=== PATIENT | female | born 1980 | race Caucasian/White ===

== ENCOUNTER 2018-10-10 16:57 | Emergency (ER) | payer MEDICARE, MEDICAID ==
--- NOTE | 2018-10-10 17:29 | EDM.PDOC ---
ED HPI GENERAL MEDICAL PROBLEM - General Chief Complaint: Abdominal Pain Stated Complaint: GTUBE ISSUE Time Seen by Provider: 10/10/18 17:00 Source of Information: Reports: Provider, Other (home care nurse sitter ) History Limitations: Reports: Physical Impairment - History of Present Illness INITIAL COMMENTS - FREE TEXT/NARRATIVE: Per home health nurse and sitter patient has been having increased irritation around the G-tube site along with having to push through medications and feeds better normally given via gravity says the patient has also become increasingly agitated with any manipulation around the G-tube such as cleaning or changing daily dressing and is also had increased leakage around the site that is thick immediately after feeds are pushing water for cleaning through the tube patient was seen yesterday by her PCP in clinic and was told to put triple antibiotic ointment around the site of the G-tube and change the G-tube home health nurse that he did not feel comfortable changing the tube secondary to the edema around the possibility of not been able to get another to him last tube was changed approximately 2 months ago per nurse no fevers chills nausea or vomiting no apparent fecal matter from the tube and no other issues or complaints no other changes in behavior Onset: Gradual Duration: Day(s): - Related Data Home Meds: Home Meds ALPRAZolam [Alprazolam] 1 tab GTUBE 10/10/18 [History] Mirtazapine 1 tab GTUBE 10/10/18 [History] Multivit-Minerals/Ferrous Gluc [Centrum Multivit-Mineral Liq] 15 ml GTUBE DAILY 10/10/18 [History] Norethindrone-Ethinyl Estrad [Aranelle 28 Tablet] 1 tab GTUBE DAILY 10/10/18 [ History] Valproic Acid (As Sodium Salt) [Valproic Acid] 20 ml GTUBE BID 10/10/18 [History ] ED ROS GENERAL - Review of Systems Review Of Systems: See Below Constitutional: Denies: Fever, Chills, Weakness, Fatigue Respiratory: Reports: No Symptoms Cardiovascular: Reports: No Symptoms Endocrine: Reports: No Symptoms GI/Abdominal: Denies: Black Stool, Bloody Stool, Diarrhea, Distension, Hematemesis, Hematochezia, Melena, Mucous in Stool, Vomiting : Reports: No Symptoms Musculoskeletal: Reports: No Symptoms Skin: Reports: Erythema (Mild erythema and discharge at the site) Neurological: Reports: Other (No change in daily behavior or activity). Denies : Confusion Psychiatric: Denies: Agitation, Anxiety Hematologic/Lymphatic: Denies: Easy Bleeding, Easy Bruising Immunologic: Reports: No Symptoms ED EXAM, GI/ABD - Physical Exam Exam: See Below Exam Limited By: Physical Impairment General Appearance: Alert, WD/WN, No Apparent Distress Nose: Normal Inspection Throat/Mouth: Normal Inspection, Normal Lips, Normal Teeth, Normal Gums, Normal Oropharynx (mmm), No Airway Compromise Head: Atraumatic, Normocephalic Neck: Non-Tender, Full Range of Motion Respiratory/Chest: No Respiratory Distress, Normal Breath Sounds, No Accessory Muscle Use Cardiovascular: Regular Rate, Rhythm GI/Abdominal Exam: Normal Bowel Sounds. No: Non-Tender, No Organomegaly ( Patient become agitated with looking at the G-tube site and increasingly agitated when examined in the site touching the area patient has mild erythema with a thick purulent discharge around it increased pain noted with touch and G- tube positive bowel sounds abdomen is soft and supple no signs of any peritoneal infection abdomen is nontender and nonrigid no guarding), Guarding, Rigid, Rebound, Abnormal Bowel Sounds Neurological: Alert. No: Oriented, CN II-XII Intact Skin Exam: Warm, Dry, Intact, Normal Color, No Rash, Erythema Course - Vital Signs Last Recorded V/S: Last Vital Signs Temp 36.3 C 10/10/18 17:07 Pulse Resp 24 H 10/10/18 17:07 BP Pulse Ox Departure - Departure Time of Disposition: 19:35 Disposition: DC/Tfer to [facility] 02 Clinical Impression: Gastrostomy tube dysfunction - Discharge Information Referrals: Sebastián Lopez MD [Primary Care Provider] - Forms: ED Department Discharge - Assessment/Plan Assessment:: Assessment gastric tube dysfunction Plan: Plan at this time patient will be transferred to [facility] to Dr. Brant velásquez surgeon through the ER for further disposition if everything is found to be normal she will be discharged home she'll be transported via POV the with nurse and caregiver at their request patient is also to be given half a milligram of Ativan IM secondary to the road trip which she normally gets 1 mg via the G- tube due to increased agitation
--- NOTE | 2018-10-10 18:45 | CR ---
[id number] RAD/RAD Abdomen Flat Plate 1V EXAM: RAD Abdomen Flat Plate 1V INDICATION: TUBE PLACEMENT COMPARISON: None. DISCUSSION: Evaluation is extremely limited secondary to motion artifact. Suspect a G-tube overlies the expected position of the stomach. IMPRESSION: Extremely limited evaluation secondary to motion artifact. Suspect a G-tube overlies the expected location of the stomach. Recommend repeat imaging. Santino Valderrama DO 10/10/18 1845 Thank you for allowing us to participate in the care of your patient.
[2018-10-10] MEDS ORDERED: LORazepam 2 MG/ML SDV IM ONE (19:39)
== END 2018-10-10 20:07 | disposition short-term general hospital (02) ==
LOC: VM.ED 16:57
DX: K94.23 Gastrostomy malfunction (principal); Z79.899 Other long term (current) drug therapy
CPT/HCPCS: 74018; 96374; 99283; J2060; 99284-GF

== ENCOUNTER 2018-10-17 18:42 | Emergency (ER) | payer MEDICARE, MEDICAID ==
--- NOTE | 2018-10-17 19:25 | EDM.PDOC ---
ED HPI GENERAL MEDICAL PROBLEM - General Chief Complaint: Gastrointestinal Problem Stated Complaint: G-TUBE SURGERY;NOW LEAKING AGAIN Time Seen by Provider: 10/17/18 18:50 Source of Information: Reports: RN History Limitations: Reports: Other (developmental disability with language impairment ) - History of Present Illness INITIAL COMMENTS - FREE TEXT/NARRATIVE: Patient comes into the emergency department with open-door staffer complaint of drainage from her g-tube port. The patient is recently G to replaced on Friday they noted leaking started on and has progressively gotten worse. Tonight they noticed after the tube feeding that most of the contents came of that side fistula that has formed. By the direction of the waterworks supervisor they directed her to the emergency department for further evaluation regarding this. The staff have declined patient has had any fever, nausea vomiting, or abnormal behaviors. They state that she has been tolerating her feeds fairly well however they have noticed that she has had more gaging after the feedings the past day. No other symptoms or concerns have been noted. Onset: Gradual Improves with: Reports: None Worsens with: Reports: None - Related Data Allergies Allergy/AdvReac Type Severity Reaction Status Date / Time No Known Allergies Allergy Verified 10/10/18 19:40 Home Meds: Home Meds ALPRAZolam [Alprazolam] 1 tab GTUBE ASDIRECTED 10/10/18 [History] Mirtazapine 1 tab GTUBE BEDTIME 10/10/18 [History] Multivit-Minerals/Ferrous Gluc [Centrum Multivit-Mineral Liq] 15 ml GTUBE DAILY 10/10/18 [History] Norethindrone-Ethinyl Estrad [Aranelle 28 Tablet] 1 tab GTUBE DAILY 10/10/18 [ History] Valproic Acid (As Sodium Salt) [Valproic Acid] 20 ml GTUBE BID 10/10/18 [History ] Past Medical History - Past Surgical History Other GI Surgeries/Procedures: Patient has a gtube Social & Family History - Family History Family Medical History: Noncontributory ED ROS GENERAL - Review of Systems Review Of Systems: ROS reveals no pertinent complaints other than HPI. Constitutional: Denies: Fever, Chills, Malaise, Weakness, Decreased Appetite Respiratory: Reports: No Symptoms Cardiovascular: Reports: No Symptoms GI/Abdominal: Reports: No Symptoms Musculoskeletal: Reports: No Symptoms ED EXAM, GENERAL - Physical Exam Exam: See Below Exam Limited By: Language Barrier General Appearance: Alert, WD/WN, No Apparent Distress Head: Atraumatic, Normocephalic Respiratory/Chest: No Respiratory Distress, Lungs Clear, No Accessory Muscle Use Cardiovascular: Normal Peripheral Pulses, Regular Rate, Rhythm GI/Abdominal: Normal Bowel Sounds, Soft, Non-Tender Back Exam: Normal Inspection, Full Range of Motion Extremities: Normal Inspection, Non-Tender, Normal Capillary Refill Skin Exam: Warm, Dry, Intact, Normal Color Course - Vital Signs Last Recorded V/S: Last Vital Signs Temp 36.4 C 10/17/18 18:57 Pulse 96 10/17/18 18:57 Resp 16 10/17/18 18:57 BP Pulse Ox Departure - Departure Time of Disposition: 19:40 Disposition: Admitted As Inpatient 66 Condition: Good Clinical Impression: Leaking PEG tube, Gastrostomy tube dysfunction - Discharge Information *PRESCRIPTION DRUG MONITORING PROGRAM REVIEWED*: Not Applicable *COPY OF PRESCRIPTION DRUG MONITORING REPORT IN PATIENT NIRAJ: Not Applicable Referrals: Sebastián Lopez MD [Primary Care Provider] - Forms: ED Department Discharge, Interfacility Transfer EMTALA Additional Instructions: 1. Patient is to be a direct admit to [address] ([facility]). - Problem List Review Problem List Initiated/Reviewed/Updated: Yes - Assessment/Plan Assessment:: 1. drainage from fistula at g-tube site Plan: 1. Contact made with [facility]. They agree further investigation is needed regarding the site. They will directly admit the patient and have a surgical consult. 2. Staff are aware and pt will be transported and directly admitted. 3. All questions and concerns are addressed prior to discharge
== END 2018-10-17 19:50 | disposition critical access hospital (66) ==
LOC: VM.ED 18:42
DX: K94.23 Gastrostomy malfunction (principal); Z79.899 Other long term (current) drug therapy
CPT/HCPCS: 99284; 99284-GF

== ENCOUNTER 2023-08-16 09:59 | Emergency (ER) | payer MEDICARE, MEDICAID | END 2023-08-16 12:08 | disposition short-term general hospital (02) | LOC: MERGE 09:59 → EDBD 09:59 → VM.ED 09:59 | DX: K94.23 Gastrostomy malfunction (principal); K94.22 Gastrostomy infection; L03.311 Cellulitis of abdominal wall | CPT/HCPCS: 99283; 99285 ==